=== PATIENT | female | born 2000 | race Hispanic/Latino ===

== ENCOUNTER 2021-10-31 02:00 | Emergency (ER) | payer SELFPAY ==
[~2021-10-31] VITALS: Ht 157.5 cm; Wt 65.8 kg
[2021-10-31] MEDS ORDERED: PREDNISONE 20 MG TAB PO STA (02:05)
[2021-10-31] MEDS ORDERED: ALBUTEROL/IPRATROPIUM 3 ML NEB NEB STA ×2 (02:05→02:44)
[2021-10-31] MEDS ORDERED: PREDNISONE20 MG PO (03:22)
[2021-10-31] MEDS ORDERED: AZITHROMYCIN250 MG PO (03:22)
[2021-10-31] MEDS ORDERED: VENTOLIN HFA18 GM INH (03:22)
== END 2021-10-31 03:45 | disposition home or self-care (01) ==
LOC: ER 02:06
DX: R06.02 Shortness of breath (principal); J45.909 Unspecified asthma, uncomplicated; T54.91XA Toxic effect of unspecified corrosive substance, accidental (unintentional), initial encounter
CPT/HCPCS: 71045; 94640 ×2; 94799; 99283; J7512